=== PATIENT | male | born 1990 | race Caucasian/White ===

== ENCOUNTER 2024-09-11 21:59 | Emergency (ER) | payer OTHER, SELFPAY ==
[2024-09-11 22:05] VITALS: BP 151/99
[2024-09-11 22:17] VITALS: BMI 39.8
--- NOTE | 2024-09-11 22:33 | ED.GENMED ---
History of Present Illness
General
Chief Complaint: Foreign Body Ingestion
Source: patient
Time Seen by Provider: 09/11/24 22:11
Nursing documentation reviewed up to this point in time: agreed with
History of Present Illness
History of Present Illness:
Note:
CHIEF COMPLAINT(S)
Possible abdominal mass detected during a scan.
HISTORY OF PRESENT ILLNESS
The patient is a 34-year-old male who presents with concerns of an abnormal finding detected on a non-medical scanner, described analogously to an airport scanner, by corrections officers. They noted that the finding did not appear normal and
recommended further medical evaluation, which led to todays visit. The patient has a history of ventral hernia repair, for which a mesh was likely used. He expressed concern that the mesh might not be sitting correctly and suggested this could be
related to the observed mass.
PAST SURGICAL HISTORY
Ventral hernia repair with mesh placement.
PLAN
- An X-ray of the abdominal area will be ordered to evaluate the suspected mass. The imaging will be reviewed promptly upon obtaining results to determine any abnormalities related to the mesh or other structures in the abdomen. The process is
expected to take over an hour.
DIFFERENTIAL DIAGNOSIS
The Differential Diagnosis includes, in no particular order and is not limited to:
1. Hernia recurrence
2. Seroma associated with prior hernia repair
3. Mesh-related complications
4. Abdominal wall mass
5. Lipoma
6. Incisional hernia
7. Post-surgical adhesions
8. Hematoma
9. Gastrointestinal mass
10. Infection or abscess formation related to prior surgery
Disposition:
SUMMARY OF ENCOUNTER
The patient, a 34-year-old male, was brought in for evaluation following the detection of a possible abnormal finding during a standard intake screening X-ray conducted by corrections officers. They noted a 'ring' in his abdomen. An additional
two-view X-ray of the abdomen was conducted, which did not reveal any obvious foreign bodies. A small metallic artifact was noted in the lower right quadrant, later identified as the zipper of his pants and not located within the abdominal region.
DISPOSITION
Medically cleared for lockup.
INDEPENDENT REVIEW OF LABS AND INTERPRETATION OF TESTS
- My independent review of the abdominal X-ray showed no foreign body present. The observed metallic entity was identified as a zipper in the pelvic area and unrelated to the abdominal concern.
DIAGNOSIS
- Encounter for examination and observation following a potential abnormal finding on imaging, subsequently ruled out (Z00.8).
Phy Exam
Physical Exam
Physical Exam:
.
General Physical Exam
General Presentation: well appearing and no apparent distress
General Skin: warm and dry
General Habitus: normal
General Mental: alert
General Hydration: appears well hydrated
ENT Exam
ENT Exam: EOMI, pharynx normal, neck supple and normocephalic
Eye Exam
Eye Exam: PERRL, cornea clear and conjunctiva normal
Cardiovascular Exam
Cardiovascular Exam: regular rate/rhythm, no edema, no murmur and normal peripheral pulses
Pulmonary Exam
Pulmonary Exam: lungs clear, no respiratory distress, no rales, no crackles, no rhonchi, no stridor, no wheezing and no cough
Gastrointestinal Exam
Gastrointestinal Exam: normal bowel sounds, non tender, soft, no organomegaly, no pulsatile mass and non distended
Neurological Exam
Neurological Exam: alert, oriented x3, no motor deficits and speech normal
Musculoskeletal Exam
Musculoskeletal Exam: full ROM, no edema and neuro vasc intact
Skin Exam
Skin Exam: normal color, warm/dry, no rash and no petechia
Psychiatric Exam
Psychiatric Exam: normal mood/affect
Course
Orders/Labs/Results
Orders:
Orders
09/11/24 22:24
CR Abdomen - 1 View Urgent
Reason For Exam: possible fb
Vital Signs
Initial and Last Documented VS:
Initial Vital Signs
Temp Pulse Resp BP Pulse Ox
98.6 F 88 16 151/99 98
07/24/25 22:05 09/11/24 22:05 09/11/24 22:05 09/11/24 22:05 09/11/24 22:05
Last Documented Vital Signs
Temp Pulse Resp BP Pulse Ox
98.6 F 88 16 151/99 98
09/11/24 22:05 09/11/24 22:05 09/11/24 22:05 09/11/24 22:05 09/11/24 22:14
*Radiology
Radiology exam reviewed: all reviewed NAD by ED Provider
*Pulse Oximetry
SaO2: 98
Oxygen Mode of Delivery: Room air
Patient hypoxic: no
*Critical Care Note
Total Time (30-74mins, 75-104mins- exclusive of procedures): Not Applicable
ED Attending Note
-
Portions of this chart may have been created with voice recognition software.� Occasional wrong word or��sound alike� substitutions may have occurred due to the inherent limitations of voice recognition software.
Discharge Plan
Departure
Patient Disposition: Halfway
Date of Disposition: 09/11/24
Time of Disposition: 22:34
Discharge Problem:
Check up for incarceration
Referrals:
[facility] [Family Provider, General]
Activity Restrictions/Additional Instructions:
Patient is medically cleared for incarceration
Thank You for choosing [facility].
It was a pleasure meeting you and taking part in your care. We hope for your continued healing and wellness.
Please read discharge instructions in their entirety. However, they are for general education and may not describe your exact diagnosis at discharge. Information on your ER visit and medical conditions were discussed with you along with appropriate
follow up information...
If indicated, please take your medications as instructed and indicated on discharge paperwork.
Please schedule a follow up appointment as directed. Call to schedule an appointment
Please return to the emergency department with ANY change in, persisting, or worsening of symptoms. If any of your symptoms do not improve, or persist, or become more severe within 6-12 hours, please return to the emergency department for further
care.
Please return to the emergency department if you develop a headache, neck pain/stiffness, fever greater than 100.4F, chest pain, shortness of breath, persistent nausea, vomiting, slurred speech, difficulty walking, numbness/tingling, weakness, signs
of infection or any other symptoms that are worrisome to you.
If you have any questions or concerns please do not hesitate to call the Hospital at
Interventions
Interventions:
*Risk Screen - Suicide Last Done: 09/11/24 22:05
*General Assessment Last Done: 09/11/24 22:05
*Neglect/Abuse Screening Last Done: 09/11/24 22:05
*ED- Fall Risk Assessment Last Done: 09/11/24 22:05
*ED COVID-19 Vaccine History Last Done: 09/11/24 22:05
VX-Huwzkg-Vsbtsohlyb Assessment Last Done: 09/11/24 22:14
ED- Pulmonary Assessment Last Done: 09/11/24 22:14
ED-EENT Assessment Last Done: 09/11/24 22:14
Discharge Date and Time
Print Language: BELGIAN
== END 2024-09-11 22:42 ==
LOC: EMR 21:59
PROVIDERS: EMERGENCY PHYSICIAN Student in an Organized Health Care Education/Training Program
DX: Z00.8 Encounter for other general examination (principal)
CPT/HCPCS: 99283; 74018